=== PATIENT | female | born 1950 | race Caucasian/White ===

== ENCOUNTER 2017-12-18 12:43 | Emergency (ER) | payer OTHER ==
--- NOTE | 2017-12-18 13:00 | PDOC ---
History of Present Illness - General Chief Complaint: Injury Stated Complaint: LEFT HAND LACERATION KNIFE Time Seen by Provider: 12/18/17 12:51 History Source: Patient Exam Limitations: No Limitations - History of Present Illness Initial Comments: 12/18/17 14:15 67y F hx of hTN presents with hand laceration. Pt was cutting an avacado approx 1 hr prior to presentation and accidentally stabbed her hand. Pt notes there was alot of bleeding itinitially, that it squirted out and eventually stopped. she notes some swelling in the hand on the dorsal aspect of her hand. pt notes some tingling and fullness to the area of the swelling, but denies any tingling/ numbness/weakness of her fingers. pt not on any a/c, asa. n oother injuries Past History - Past Medical History Allergies/Adverse Reactions: Allergies Allergy/AdvReac Type Severity Reaction Status Date / Time shellfish derived Allergy ANGIOEDEMA Verified 12/18/17 12:46 Home Medications: Ambulatory Orders Cephalexin Monohydrate [Keflex -] 500 mg PO Q8H #15 capsule 12/18/17 Tramadol HCl 50 mg PO TID PRN #12 tablet MDD 3 12/18/17 COPD: No Other medical history: DENIES - Suicide/Smoking/Psychosocial Hx Smoking History: Never smoked Have you smoked in the past 12 months: Yes Number of Cigarettes Smoked Daily: 10 Information on smoking cessation initiated: Yes Hx Alcohol Use: No Drug/Substance Use Hx: No Review of Systems - Review of Systems Able to Perform ROS?: Yes Comments:: 12/18/17 14:23 Musculskelatal - +hand pain, swelling, no reported back pain, joint swelling skin - +puncture wound no reported bruising, erythema, rash neurological: no reported focal weakness, tingling, ataxia, hematologic: no reported easy bruising, easy bleeding *Physical Exam - Vital Signs Last Vital Signs Temp Pulse Resp BP Pulse Ox 98.7 F 102 H 18 148/77 98 12/18/17 12:43 12/18/17 12:43 12/18/17 12:43 12/18/17 12:43 12/18/17 12:43 - Physical Exam Comments: 12/18/17 14:25 GENERAL: The patient is awake, alert, and fully oriented, Nontoxic - in no acute distress. EXTREMITIES: L hand exam: .5cm laceration/puncure wound, non gaping, no actiuve bleeding, +ecchymosis in surrounding area with brusiing/fullness noted on dorsal hand. strength intact with flexion and extension at each digit of L hand tested at each joint independently, sensation intact throughout SKIN: Warm, Dry, normal turgor, ED Treatment Course - LABORATORY CBC & Chemistry Diagram: 12/18/17 13:27 12/18/17 13:27 Medical Decision Making - Medical Decision Making 12/18/17 14:27 puncture wound/lac will leave open to close by secondary intension no bleeding noted, but due to fullness, concern tofr possible arterial damage - will observe in the ED with arm elevated to see if swelling improveds or worsens. neuro intact. preop labs obtained, xray of hand to r/o fx and fb will give a dose of ancef and update pts tetanus area irrigated throghly 12/18/17 15:42 no fb noted on xray labs unremarkable pt has been observed for 3 hrs in the ED - pain improved swelling improved, +ecchymosis but there is no signs of expanding hematoma will give rx for prophy abx, and tramadol for pain fu with pmd in 3-4 days return precautinos for neuro sx, expanding hematoma, infection were discussed I discussed the physical exam findings, ancillary test results and final diagnoses with the patient. I answered all of the patient's questions. The patient was satisfied with the care received and felt comfortable with the discharge plan and treatment plan. The patient will call their primary care physician within 24 hours to arrange follow-up and will return to the Emergency Department with any new, persistent or worsening symptoms. *DC/Admit/Observation/Transfer Diagnosis at time of Disposition: Hematoma Laceration of hand Qualifiers: Encounter type: initial encounter Foreign body presence: without foreign body Laterality: left Qualified Code(s): S61.412A - Laceration without foreign body of left hand, initial encounter - Discharge Dispostion Disposition: HOME Condition at time of disposition: Improved Decision to Admit order: No - Referrals Referrals: [facility] [place] [Provider Group] - Patient Instructions Printed Discharge Instructions: DI for Minor Laceration, DI for Puncture Wound Additional Instructions: Return to the emergency department immediately with ANY new, persistent or worsening symptoms including any increased swelling, redness, warmth, bleeding, numbnes/tingling/weakness. Take the medications as needed for pain. Take the antibiotics to prvent infection You MUST call and follow up with your doctor in 2 or 3 days for further evaluation of your symptoms. Results were discussed with you. Please make sure your doctor reviews the results of your emergency evaluation. Print Language: KINYARWANDA - Post Discharge Activity
[2017-12-18] MEDS ORDERED: CEFAZOLIN 2 GM in DEXTROSE 5%-WATER - 50 ML IVPB ONE (13:04)
[2017-12-18] MEDS ORDERED: DIPHTH,PERTUSS(ACELL),TET 0.5 ML DISP.SYRIN IM ONE (13:04)
[2017-12-18 13:12] VITALS: BP 148/77; PULSE 102; TEMP 98.7; BMI 23.3
[2017-12-18] MEDS ORDERED: ceFAZolin SODIUM 1 GM VIAL ONE (13:28)
[2017-12-18 14:12] LABS: INR 0.88 (0.82-1.09); PROTHROMBIN TIME (PATIENT) 9.9 SEC (10.2-13.0)
[2017-12-18 14:15] LABS: BASO % 0.6 % (0-2.0); EOS % 3.3 % (0-4.5); HEMATOCRIT 46.2 % (32.4-45.2); HEMOGLOBIN 15.8 GM/dl (10.7-15.3); LYMPH % 19.1 % (8-40); MCH 29.2 pg (25.7-33.7); MCHC 34.2 g/dl (32.0-36.0); MEAN CELL VOLUME 85.3 fl (80-96); MEAN PLT VOLUME 7.5 fl (7.5-11.1); MONO % 6.5 % (3.8-10.2); NEUT % 70.5 % (42.8-82.8); PLATELET COUNT 333 K/MM3 (134-434); RBC 5.42 M/mm3 (3.60-5.2); RDW 13.8 % (11.6-15.6); WHITE BLOOD COUNT 9.1 K/mm3 (4.0-10.8)
[2017-12-18] MEDS ORDERED: ACETAMINOPHEN 325 MG TABLET (FP) PO ONE (14:17)
[2017-12-18] MEDS ORDERED: ACETAMINOPHEN 325 MG TABLET (FP) ONE (14:21)
[2017-12-18 14:32] LABS: ALBUMIN 4.1 g/dl (3.5-5.0); ALK PHOS 73 U/L (32-92); ANION GAP 9 (8-16); BILIRUBIN,TOTAL 0.3 mg/dl (0.2-1.0); BLOOD UREA NITROGEN 21 mg/dl (7-18); CALCIUM 9.6 mg/dl (8.4-10.2); CHLORIDE 103 mmol/L (98-107); CO2 26 mmol/L (22-28); GLUCOSE,RANDOM 104 mg/dl (74-106); SGOT/AST 19 U/L (10-42); SGPT/ALT 17 U/L (10-40); SODIUM 138 mmol/L (136-145); TOT PROT 7.1 g/dl (6.4-8.3)
== END 2017-12-18 16:05 | disposition home or self-care (01) ==
LOC: FER 12:43
PROC: 0HQGXZZ Repair Left Hand Skin, External Approach (ICD-10-PCS; principal; 2017-12-18)
PROC: 3E03329 Introduction of Other Anti-infective into Peripheral Vein, Percutaneous Approach (ICD-10-PCS; 2017-12-18)
PROC: 3E0234Z Introduction of Serum, Toxoid and Vaccine into Muscle, Percutaneous Approach (ICD-10-PCS; 2017-12-18)
DX: S61.412A Laceration without foreign body of left hand, initial encounter (principal); S60.222A Contusion of left hand, initial encounter; R20.2 Paresthesia of skin; W26.0XXA Contact with knife, initial encounter; Y93.G1 Activity, food preparation and clean up; Y92.9 Unspecified place or not applicable; I10 Essential (primary) hypertension; Z91.013 Allergy to seafood
CPT/HCPCS: 36415; 73130-TC-LR-FY; 80053; 85025; 85610; 86850; 86900; 86901; 90715; 99284-25